=== PATIENT | female | born 1950 | race Caucasian/White ===

== ENCOUNTER → 2020-01-30 | Outpatient (CLI) | payer OTHER ==
[~2020-01-30] MED LIST: COZAAR 50 MG TA50 M2 PO; FERREX 150 FORT1 CAP PO; LEVAQUIN 500 M500 M2 PO; PROTONIX40 M1 PO; [UNRECOGNIZED DRUG - MIXTURE]
== END ==
LOC: RAD 15:22
PROVIDERS: ATTEND Family Medicine
DX: J90 Pleural effusion, not elsewhere classified (principal); I51.7 Cardiomegaly

== ENCOUNTER → 2020-02-10 | Outpatient (CLI) | payer OTHER | LOC: SJCVC 15:02 | PROVIDERS: ATTEND Internal Medicine Cardiovascular Disease | DX: R94.31 Abnormal electrocardiogram [ECG] [EKG] (principal); R00.0 Tachycardia, unspecified; I42.9 Cardiomyopathy, unspecified; R06.02 Shortness of breath; I10 Essential (primary) hypertension; E78.00 Pure hypercholesterolemia, unspecified; I89.0 Lymphedema, not elsewhere classified ==

== ENCOUNTER → 2020-02-10 | Outpatient (CLI) | payer OTHER ==
--- NOTE | 2020-02-10 14:56 | 2DMMODE ---
[facility] [place] [address] 2 D/M-MODE ECHOCARDIOGRAM Name: KENYA BEST [facility] [id number] Admission: 02/10/20 Attend Phys: David Hyatt MD Discharge: Date of : 48 Report #: [id number] THIS REPORT FOR: cc: David Hyatt MD, Neal A. MD MancusFlorentin flynn MD [facility] ~ APPROVED REPORT Study performed: 02/10/2020 14:08:39 EXAM: Comprehensive 2D, Doppler, and color-flow Echocardiogram Patient Location: Out-Patient Room #: Echo lab 2 Status: routine BSA: 2.12 HR: 114 bpm BP: 142/92 mmHg Rhythm: Tachycardia Other Information Study Quality: Adequate Indications Dyspnea Cardiomyopathy 2D Dimensions RVDd: 47.17 mm IVSd: 8.74 (7-11mm) LVOT Diam: 19.84 (18-24mm) LVDd: 58.91 mm PWd: 8.74 (7-11mm) Ascending Ao: 27.08 (22-36mm) LVDs: 50.56 (25-40mm) Aortic Root: 26.05 mm IVC: 27.00 mm Volumes Left Atrial Volume (Systole) Single Plane 4CH: 89.60 mL Single Plane 2CH: 72.81 mL LA ESV Index: 42.00 mL/m2 Aortic Valve AoV Peak Jesus.: 1.34 m/s AO Peak Gr.: 7.19 mmHg LVOT Max P.40 mmHg LVOT Max V: 0.77 m/s VERA Vmax: 1.78 cm2 [facility] [address] [address] 2 D/M-MODE ECHOCARDIOGRAM Name: KENYA BEST Room #: REG [facility]#: [id number] Admission: 02/10/20 Attend Phys: David Hyatt, Discharge: Date of : 48 Report #: [id number] Vmax: 4.95 m/s AI Powell: 2.94 m/s2 AI PHT: 487.62 ms Pulmonary Valve PV Peak Jesus.: 1.00 m/s PV Peak Gr.: 3.99 mmHg Tricuspid Valve TR Peak Jesus.: 3.04 m/s TR Peak Gr.: 36.94 mmHg PA Pressure: 52.00 mmHg Left Ventricle Left ventricle is dilated. There severe is global hypokinesis of the left ventricle. There is normal left ventricular wall thickness. Left ventricular ejection fraction is severely decreased. LVEF is 30%. Grade IV - fixed restrictive diastolic dysfunction. Right Ventricle Right ventricle is dilated. Right ventricle is hypokinetic. Atria Left atrium is dilated. Right atrium is dilated. Aortic Valve The aortic valve is normal in structure. Mild to moderate aortic regurgitation. There is no aortic valvular stenosis. Mitral Valve The mitral valve is normal in structure. Moderate mitral regurgitation. No evidence of mitral valve stenosis. Tricuspid Valve The tricuspid valve is normal in structure. There is moderate tricuspid regurgitation. Estimated PAP 52 mmHg. There is moderate pulmonary hypertension. Pulmonic Valve The pulmonary valve is normal in structure. Trace to mild pulmonic regurgitation. Great Vessels The aortic root is normal in size. The inferior vena cava is dilated with no inspiratory collapse. [facility] [place] [address] [place] [address] 2 D/M-MODE ECHOCARDIOGRAM Name: TESSAKENYA WILKINS Room #: [facility]#: [id number] Admission: 02/10/20 Attend Phys: David Hyatt, Discharge: Date of : 48 Report #: [id number] Pericardium There is no pericardial effusion. <Conclusion> Left ventricle is dilated. LVEF is 30%. Grade IV - fixed restrictive diastolic dysfunction. There severe is global hypokinesis of the left ventricle. Right ventricle is dilated. Right ventricle is hypokinetic. Left atrium is dilated. Right atrium is dilated. Mild to moderate aortic regurgitation. Moderate mitral regurgitation. There is moderate tricuspid regurgitation. Estimated PAP 52 mmHg. There is moderate pulmonary hypertension. The aortic root is normal in size. There is no pericardial effusion. <ELECTRONICALLY SIGNED> By: Florentin Eaton MD, [facility] 02/10/20 1456 1456 Florentin Eaton MD, FACC /INF
== END ==
LOC: CV 13:57
PROVIDERS: ATTEND Family Medicine
DX: I08.8 Other rheumatic multiple valve diseases (principal); I27.20 Pulmonary hypertension, unspecified; R06.00 Dyspnea, unspecified

== ENCOUNTER → 2020-02-13 | Outpatient (CLI) | payer OTHER | LOC: HYPER 13:47 | PROVIDERS: ATTEND Emergency Medicine | DX: S90.822A Blister (nonthermal), left foot, initial encounter (principal); L98.8 Other specified disorders of the skin and subcutaneous tissue; I89.0 Lymphedema, not elsewhere classified; L13.8 Other specified bullous disorders; G90.09 Other idiopathic peripheral autonomic neuropathy; R60.0 Localized edema; I25.10 Atherosclerotic heart disease of native coronary artery without angina pectoris; Z87.891 Personal history of nicotine dependence; X58.XXXA Exposure to other specified factors, initial encounter; Y93.89 Activity, other specified; Y92.89 Other specified places as the place of occurrence of the external cause; Y99.8 Other external cause status ==

== ENCOUNTER → 2020-02-20 | Outpatient (CLI) | payer OTHER | LOC: HYPER 13:50 | PROVIDERS: ATTEND Emergency Medicine | DX: L97.521 Non-pressure chronic ulcer of other part of left foot limited to breakdown of skin (principal); S90.822D Blister (nonthermal), left foot, subsequent encounter; I89.0 Lymphedema, not elsewhere classified; G90.09 Other idiopathic peripheral autonomic neuropathy; R60.0 Localized edema; L13.8 Other specified bullous disorders; R23.4 Changes in skin texture; I25.10 Atherosclerotic heart disease of native coronary artery without angina pectoris; Z87.891 Personal history of nicotine dependence; X58.XXXD Exposure to other specified factors, subsequent encounter ==

== ENCOUNTER → 2020-02-24 | Outpatient (CLI) | payer OTHER ==
[~2020-02-24] MED LIST changes: +EDARBI40 MG PO; +FUROSEMIDE 40 M40 MG PO; +POTASSIUM20 PO; +TOPROL XL25 MG PO; +UNICOMPLEX M TA1 TA1 PO
== END ==
LOC: SJCVC 13:50
PROVIDERS: ATTEND Internal Medicine Cardiovascular Disease
DX: R94.31 Abnormal electrocardiogram [ECG] [EKG] (principal); I11.0 Hypertensive heart disease with heart failure; I50.23 Acute on chronic systolic (congestive) heart failure; I42.9 Cardiomyopathy, unspecified; I89.0 Lymphedema, not elsewhere classified; E78.00 Pure hypercholesterolemia, unspecified; Z79.899 Other long term (current) drug therapy

== ENCOUNTER → 2020-03-05 | Outpatient (CLI) | payer OTHER ==
[~2020-03-05] VITALS: Ht 160 cm; Wt 106.1 kg
--- NOTE | ~2020-03-05 | EKG ---
[facility] [place] [address] ELECTROCARDIOGRAM REPORT Name: TESSAMauroAYAHKENYA Shukla Room #: REG [facility]#: [id number] Admission: 03/05/20 Attend Phys: Florentin Eaton MD, Discharge: Date of : 48 Report #: [id number] THIS REPORT FOR: cc: David Hyatt MD, Neal A. MD Epiphany, Epiphany MD ~ THIS REPORT FOR: //name// [facility] Test Date: 2020-03-05 Test Time: 08:21:49 Pat Name: KENYA BEST Department: Room: Gender: F University Relations Recruiter: YOSELIN : 1950 Requested By: Florentin Eaton Order Number: [id number] MD: Measurements Intervals [place] Rate: 76 P: 58 RI: 152 QRS: 16 QRSD: 76 T: 37 QT: 390 QTc: 439 Interpretive Statements Sinus rhythm Baseline wander in lead(s) I,III,aVL,V3 No previous ECG available for comparison [email or web address] By: 0821 0 Epiphany Epiphany, /EPI
[2020-03-05 08:33] VITALS: BP 111/60
--- NOTE | 2020-03-05 16:29 | CATHLAB ---
[facility] [place] [address] INVASIVE PROCEDURE REPORT Name: KENYA BEST Vazquez Room #: REG CLARISA VillatoroAlfaRichmondAlfa#: [id number] Admission: 03/05/20 Attend Phys: Florentin Eaton MD, Discharge: Date of : 48 Report #: [id number] THIS REPORT FOR: cc: David Hyatt MD, Neal A. MD Mancuso, Gerald M. MD [facility] ~ APPROVED REPORT Study performed: 03/05/2020 11:55:26 Patient Details Patient Status: Out-Patient Room #: The patient is a 69 year-old female Event Personnel Florentin Eaton Development Educator, Yudith Chaney RN RN, Zaynab Pritchard RTR, Ulises Monroy Sherra RTR Monitor Procedures Performed Art Access - R femoral artery* Gregory Access - R femoral vein Right and Left Heart Cath w/or w/o Coronarie [id number] [facility] Aortogram Abdominal Peripheral Angio [id number] Hemostasis w/ Mynx [id number] sedation Indication Chest pain Procedure Narrative The Right Groin^ was infiltrated with 1% Lidocaine subcutaneous anesthesia. A Right Heart Catheterization was performed with a 7 Fr. Saline-Chelo catheter and pressure were recorded. Cardiac outputs were obtained by the Thermal Dilution method. A PINNACLE 6FR Sheath #[id number] sheath was inserted into the right femoral artery. Coronary angiography was performed using coronary diagnostic catheters. The right coronary system was accessed and visualized with a JR4 catheter. The left coronary system was accessed and visualized with a JL4 catheter. The left ventricle was accessed and visualized with a PIGTAIL catheter. Left ventriculogram was performed in 30 degree projection. An aortogram of the abdominal aorta was performed. Pre-demployment femoral angiogram was performed . Closure device was deployed with a 6 Fr MYNX CONTROL 6F/7F L#[id number]. The patient tolerated the procedure well and there were no complications associated with the procedure. There was no hematoma. SEDATION [facility] [address] [place] [address] INVASIVE PROCEDURE REPORT Name: KENYA BEST Room #: [facility]#: [id number] Admission: 03/05/20 Attend Phys: Florentin Eaton, Discharge: Date of : 48 Report #: [id number] AMOUNTS, CONTRAST TOTALS,AND FLOURO TIME ARE ALL FROM A COMBO CASE WITH DR PAZ Intraoperative Conscious Sedation Sedation start time: 1250 Case end Time: 1307 Fentanyl 100 mcg Versed 2 mg Fluoro Time: 14.90 minutes Dose: DAP 19552.00 cGycm2 2869 mGy Contrast Type and Amount: Visipaque 100 ml Hemodynamics The right atrial mean pressure is 7 mmHg. The right ventricular pressure is 45/-1 mmHg. The pulmonary artery pressure is 48/19 mmHg with a mean of 29 mmHg. The mean pulmonary capillary wedge pressure is 30 mmHg. The aortic pressure is 130/64 mmHg with a mean of 91 mmHg. The left ventricular pressure is 144/6 mmHg with a mean of mmHg. The left ventricular end diastolic pressure is 14 mmHg. The cardiac output using thermo method is 3.65 L/min. The cardiac index using thermo method is 2.09 L/min/m2. PCI Technique Lesion 2 Percutaneous Coronary Intervention was performed on the Left Renal. Conclusion 1. Right heart catheterization with cardiac output by thermodilution. See above hemodynamics. #2 normal left jugular size with mild global hypokinesis slightly worse inferior EF 40 to 45%. #3 ectatic abdominal aorta with moderate calcification distal stenosis with bilateral renal artery stenosis the left renal artery is subtotaled see Dr. Paz's dictation for intervention. #4 left main mild disease giving rise to LAD and circumflex. #5 proximal LAD is an eccentric 50% lesion giving rise to a more preserved LAD which extends to the apex. Mild diagonal disease. #6 circumflex OM nondominant with mild disease #7 large dominant mildly ectatic right coronary artery Recommendations and plan: Continue aggressive risk factor [facility] [address] [place] [address] INVASIVE PROCEDURE REPORT Name: KENYA BEST Room #: REG Melissa#: [id number] Admission: 03/05/20 Attend Phys: Florentin Eaton, Discharge: Date of : 48 Report #: [id number] modification fluid restriction diuresis. Renal artery stenosis to be addressed per Dr. Paz suspect intervention with TMR TEACHER stent. <ELECTRONICALLY SIGNED> By: Florentin Eaton MD, FACC 03/05/20 1629 162 28 Florentin Eaton MD, FACC /INF
== END | disposition home or self-care (01) ==
LOC: CATH 07:42
PROVIDERS: ATTEND Internal Medicine Cardiovascular Disease
DX: R07.9 Chest pain, unspecified (principal); I25.10 Atherosclerotic heart disease of native coronary artery without angina pectoris; I70.0 Atherosclerosis of aorta; I77.811 Abdominal aortic ectasia; I70.1 Atherosclerosis of renal artery; I15.0 Renovascular hypertension; I73.9 Peripheral vascular disease, unspecified; I11.0 Hypertensive heart disease with heart failure; I50.9 Heart failure, unspecified; I42.9 Cardiomyopathy, unspecified; Z98.890 Other specified postprocedural states; Z79.899 Other long term (current) drug therapy; Z98.51 Tubal ligation status; Z96.651 Presence of right artificial knee joint; Z86.73 Personal history of transient ischemic attack (TIA), and cerebral infarction without residual deficits

== ENCOUNTER → 2020-06-18 | Outpatient (CLI) | payer OTHER | LOC: SJCVCIMAG 09:02 | PROVIDERS: ATTEND Internal Medicine Cardiovascular Disease | DX: I42.9 Cardiomyopathy, unspecified (principal); I70.1 Atherosclerosis of renal artery; I11.0 Hypertensive heart disease with heart failure; I50.23 Acute on chronic systolic (congestive) heart failure; M19.90 Unspecified osteoarthritis, unspecified site; Z95.828 Presence of other vascular implants and grafts; Z79.899 Other long term (current) drug therapy ==

== ENCOUNTER → 2020-09-25 | Outpatient (CLI) | payer OTHER | LOC: SJCVCIMAG 08:30 | PROVIDERS: ATTEND Nuclear Medicine Nuclear Cardiology | DX: R94.31 Abnormal electrocardiogram [ECG] [EKG] (principal); I08.2 Rheumatic disorders of both aortic and tricuspid valves; I70.1 Atherosclerosis of renal artery; I10 Essential (primary) hypertension; I25.10 Atherosclerotic heart disease of native coronary artery without angina pectoris; I27.20 Pulmonary hypertension, unspecified; E78.00 Pure hypercholesterolemia, unspecified; R06.00 Dyspnea, unspecified; I42.9 Cardiomyopathy, unspecified; Z87.891 Personal history of nicotine dependence; Z79.899 Other long term (current) drug therapy; Z95.5 Presence of coronary angioplasty implant and graft ==

== ENCOUNTER → 2021-02-27 | Outpatient (CLI) | payer OTHER | LOC: SJCVC 10:04 | PROVIDERS: ATTEND Internal Medicine Cardiovascular Disease | DX: R00.0 Tachycardia, unspecified (principal); R06.00 Dyspnea, unspecified; I25.10 Atherosclerotic heart disease of native coronary artery without angina pectoris; I42.9 Cardiomyopathy, unspecified; I10 Essential (primary) hypertension; E78.00 Pure hypercholesterolemia, unspecified; I70.1 Atherosclerosis of renal artery; Z95.828 Presence of other vascular implants and grafts; Z98.890 Other specified postprocedural states; Z79.84 Long term (current) use of oral hypoglycemic drugs; Z79.899 Other long term (current) drug therapy; Z87.891 Personal history of nicotine dependence; Z82.49 Family history of ischemic heart disease and other diseases of the circulatory system ==

== ENCOUNTER → 2021-03-01 | Outpatient (CLI) | payer OTHER | LOC: HYPER 07:27 | PROVIDERS: ATTEND Emergency Medicine Emergency Medical Services | DX: E11.622 Type 2 diabetes mellitus with other skin ulcer (principal); L89.313 Pressure ulcer of right buttock, stage 3; L98.412 Non-pressure chronic ulcer of buttock with fat layer exposed; E11.43 Type 2 diabetes mellitus with diabetic autonomic (poly)neuropathy; I89.0 Lymphedema, not elsewhere classified; M62.81 Muscle weakness (generalized); I25.10 Atherosclerotic heart disease of native coronary artery without angina pectoris; I10 Essential (primary) hypertension; M19.90 Unspecified osteoarthritis, unspecified site; L13.8 Other specified bullous disorders; R60.0 Localized edema; Z87.891 Personal history of nicotine dependence; Z79.84 Long term (current) use of oral hypoglycemic drugs; Z79.899 Other long term (current) drug therapy ==

== ENCOUNTER → 2021-03-15 | Outpatient (CLI) | payer OTHER | LOC: HYPER 07:52 | PROVIDERS: ATTEND Emergency Medicine | DX: E11.622 Type 2 diabetes mellitus with other skin ulcer (principal); L89.313 Pressure ulcer of right buttock, stage 3; L89.320 Pressure ulcer of left buttock, unstageable; L98.412 Non-pressure chronic ulcer of buttock with fat layer exposed; E11.43 Type 2 diabetes mellitus with diabetic autonomic (poly)neuropathy; L13.8 Other specified bullous disorders; I89.0 Lymphedema, not elsewhere classified; R60.0 Localized edema; E66.01 Morbid (severe) obesity due to excess calories; I25.10 Atherosclerotic heart disease of native coronary artery without angina pectoris; I10 Essential (primary) hypertension; I42.9 Cardiomyopathy, unspecified; M19.90 Unspecified osteoarthritis, unspecified site; M62.81 Muscle weakness (generalized); Z87.891 Personal history of nicotine dependence; Z79.84 Long term (current) use of oral hypoglycemic drugs; Z68.39 Body mass index [BMI] 39.0-39.9, adult ==

== ENCOUNTER → 2021-03-29 | Outpatient (CLI) | payer OTHER | LOC: HYPER 07:41 | PROVIDERS: ATTEND Emergency Medicine Emergency Medical Services | DX: E11.622 Type 2 diabetes mellitus with other skin ulcer (principal); L89.313 Pressure ulcer of right buttock, stage 3; L89.320 Pressure ulcer of left buttock, unstageable; L98.412 Non-pressure chronic ulcer of buttock with fat layer exposed; M62.81 Muscle weakness (generalized); G90.09 Other idiopathic peripheral autonomic neuropathy; L13.8 Other specified bullous disorders; R60.0 Localized edema; I89.0 Lymphedema, not elsewhere classified; I25.10 Atherosclerotic heart disease of native coronary artery without angina pectoris; I10 Essential (primary) hypertension; Z87.891 Personal history of nicotine dependence; Z79.84 Long term (current) use of oral hypoglycemic drugs; Z79.899 Other long term (current) drug therapy ==

== ENCOUNTER → 2021-04-19 | Outpatient (CLI) | payer OTHER | LOC: HYPER 07:35 | PROVIDERS: ATTEND Emergency Medicine Emergency Medical Services | DX: E11.622 Type 2 diabetes mellitus with other skin ulcer (principal); L89.320 Pressure ulcer of left buttock, unstageable; L98.411 Non-pressure chronic ulcer of buttock limited to breakdown of skin; M62.81 Muscle weakness (generalized); M19.90 Unspecified osteoarthritis, unspecified site; E11.43 Type 2 diabetes mellitus with diabetic autonomic (poly)neuropathy; L13.8 Other specified bullous disorders; R60.0 Localized edema; I89.0 Lymphedema, not elsewhere classified; I25.10 Atherosclerotic heart disease of native coronary artery without angina pectoris; I10 Essential (primary) hypertension; Z87.891 Personal history of nicotine dependence; Z79.84 Long term (current) use of oral hypoglycemic drugs; Z79.899 Other long term (current) drug therapy ==

== ENCOUNTER → 2021-04-30 | Outpatient (CLI) | payer OTHER | LOC: SJCVCIMAG 08:06 | PROVIDERS: ATTEND Internal Medicine Cardiovascular Disease | DX: R94.31 Abnormal electrocardiogram [ECG] [EKG] (principal); I25.10 Atherosclerotic heart disease of native coronary artery without angina pectoris; I65.23 Occlusion and stenosis of bilateral carotid arteries; I70.1 Atherosclerosis of renal artery; I11.0 Hypertensive heart disease with heart failure; I50.23 Acute on chronic systolic (congestive) heart failure; I42.9 Cardiomyopathy, unspecified; E78.00 Pure hypercholesterolemia, unspecified; E11.9 Type 2 diabetes mellitus without complications; Z87.891 Personal history of nicotine dependence; Z79.899 Other long term (current) drug therapy ==

== ENCOUNTER → 2021-05-06 | Outpatient (CLI) | payer OTHER | LOC: SJCVCIMAG 10:49 | PROVIDERS: ATTEND Internal Medicine Cardiovascular Disease | DX: I42.9 Cardiomyopathy, unspecified (principal); I25.10 Atherosclerotic heart disease of native coronary artery without angina pectoris ==

== ENCOUNTER → 2021-05-21 | Outpatient (CLI) | payer OTHER ==
[~2021-05-21] MED LIST changes: +CLOPIDOGREL75 MG PO; +DEMADEX20 MG PO; +KLOR-CON M2020 MEQ PO; +METAMUCIL POWD174 GM PO; +METFORMIN HCL500 M1 PO; +ROSUVASTATIN CA20 MG PO; +VITAMIN B COMP1 EACH PO
[2021-05-21 11:36] LABS: HEMATOCRIT 42.3 % (37.0-47.0); HEMOGLOBIN 14.1 gm/dL (12.0-15.0); MCH 29.6 pg (26.0-34.0); MCHC 33.2 g/dL (28.0-37.0); RBC 4.76 mil/uL (4.20-5.00); RDW 16.6 % (10.5-14.5); WBC 9.5 thou/uL (4.0-11.0)
[2021-05-21 11:45] LABS: URINE BILIRUBIN NEGATIVE (Negative); URINE BLOOD NEGATIVE (Negative); URINE CLARITY CLEAR; URINE COLOR YELLOW; URINE GLUCOSE-RANDOM* NEGATIVE (Negative); URINE KETONES NEGATIVE (Negative); URINE NITRITE-REFLEX NEGATIVE (Negative); URINE PROTEIN (DIPSTICK) NEGATIVE (Negative); URINE SPECIFIC GRAVITY 1.025 (1.005-1.035); URINE UROBILINOGEN 0.2 E.U./dl (0.2-1.0)
[2021-05-21 11:45] LABS: ALBUMIN 3.9 g/dL (3.4-5.0); CALCIUM 9.7 mg/dL (8.5-10.1); CREATININE 1.3 mg/dL (0.6-1.0); POTASSIUM 3.5 mmol/L (3.5-5.1)
[2021-05-21 11:48] LABS: INR 1.03; PROTIME 11.2 Seconds (10.5-12.1)
[2021-05-21 11:56] LABS: URINE LEUKOCYTES-REFLEX 2+ (Negative)
[2021-05-21 13:03] LABS: BACTERIA-REFLEX 1-9 Few /HPF (None Seen); SQUAMOUS 0-3 Few /LPF (0-3); URINE RBC None Seen /HPF (NONE SEEN); URINE WBC-REFLEX 6-15 Few /HPF (0-5)
[2021-05-21 13:04] LABS: CASTS None Seen /LPF (None Seen); CRYSTALS None Seen /LPF (None Seen)
== END ==
LOC: PAC 10:34
PROVIDERS: ATTEND Orthopaedic Surgery
DX: Z01.812 Encounter for preprocedural laboratory examination (principal); M16.12 Unilateral primary osteoarthritis, left hip

== ENCOUNTER → 2021-05-24 | Outpatient (CLI) | payer OTHER | LOC: LAB 07:52 | PROVIDERS: ATTEND Student in an Organized Health Care Education/Training Program | DX: Z01.812 Encounter for preprocedural laboratory examination (principal); Z20.822 Contact with and (suspected) exposure to COVID-19 ==

== ENCOUNTER 2021-05-27 06:04 | Observation (INO) | payer OTHER ==
[~2021-05-27] VITALS: Ht 160 cm; Wt 92.5 kg
[2021-05-27 06:50] VITALS: BP 110/70
--- NOTE | 2021-05-27 12:00 | NUR ---
Pt arrived to room 442 from surgery. pt is A & O x4. Pt vs stable. pt has PT/OT consult. pt is able to make needs known. pt denies pain/n/v noted.
[2021-05-27 12:15] VITALS: BP 127/61
[2021-05-27 16:08] VITALS: BP 113/61
--- NOTE | 2021-05-27 16:22 | NUR ---
PT ADMITTED RELATED TO LT THR. CM REVIEWED CHART AND SPOKE WITH CARE TEAM. CM MET WITH PT AT BEDSIDE THIS DAY. PT APPEARED TO BE A&O X 4. CM ROLE INTRODUCED. PT INDICATED THAT SHE RESIDES IN A HOUSE WITH HER SPOSE WITH 6 STEPS TO ENTER AND NO STEPS INISDE. PT INDICATED SHE HAD USED A CANE OCCASIONALLY TO ASSIST WITH MOBILITY INSTRUCTIONAL FACILITATOR AND THAT SHE HAS 3 WALKERS SHE CAN USE UPON DC. PT INDICATED SHE IS SET UP WITH OP PT AND OT AT A PLACE IN [place] SHE CAN'T RECALL THE NAME BUT SHE KNOWS WHERE IT IS AND WHEN SHE NEEDS TO BE THERE. PT INIDCATED SHE PLANS TO RETUN HOME TOMORROW. CM FOLLOWING SHOULD ANY DC NEEDS ARISE.
[2021-05-27 19:39] VITALS: BP 99/55
--- NOTE | 2021-05-28 02:53 | NUR ---
ASSESSED AT START OF SHIFT PT RESTING IN BED. UP WITH ASSISTX1 TO TY BATHROOM. IV INTACT AND FLUIDS INFUSING. EVENING MEDS GIVEN AND PT ALBA IT WELL. LEFT HIP MANJIT DRESSING INTACT. ICE PACK IN PLACE FOR COLD THERAPY. WILL CONT WITH POC TILL EOS.
[2021-05-28 04:54] VITALS: BP 134/88
[2021-05-28 07:34] VITALS: BP 124/64
[2021-05-28 13:37] VITALS: BP 124/64
--- NOTE | 2021-05-28 15:27 | NUR ---
CARE TEAM INDICATED THAT PT IS MEDICALLY STABLE TO DC HOME THIS DAY. PT IS SET UP WITH OP PT AND OT IN [place] STARTING TOMORROW. PT HAS ALL NEEDED DME. NO OTHER CM INTERVENTION INDICATED. CASE CLOSED.
--- NOTE | 2021-05-28 16:04 | NUR ---
pt received discharge orders to home. pt vs stable. pt is SBA with ADLs and cares. pt discharge instructions reviewed with pt and pt verbalized understanding and signed instructions. pt wheeled to front enterence in wheelchair by staff with personal belongings and left hospital without incident in private vehicle.
--- NOTE | 2021-05-29 13:42 | O ---
[facility] [place] [address] [place] [address] OPERATIVE REPORT Name: KENYA BEST Room #: 442-P [facility] Fabien Torres#: [id number] Admission: 05/27/21 Attend Phys: Alexander Grant MD Discharge: 05/28/21 Date of : 48 Report #: [id number] THIS REPORT FOR: cc: David Hyatt MD, Neal A. MD Abraham,Alexander Ramirez MD ~ DATE OF SERVICE: 05/27/2021 PREOPERATIVE DIAGNOSIS: Severe left hip osteoarthritis. POSTOPERATIVE DIAGNOSIS: Severe left hip osteoarthritis. PROCEDURE: Left total hip arthroplasty. SURGEON: Alexander Grant MD PEDIATRIC PSYCHOLOGIST: Vale Andres PA-C INDICATION FOR PEDIATRIC PSYCHOLOGIST: Throughout the case, extensive retraction, manipulation of the hip including dislocation and reduction was required. This was afforded to me by my financial assistant. ANESTHESIA: LMA. IMPLANTS: A [employer] size 11 standard offset cemented Synergy press-fit stem, a size 52 R3 acetabular cup and a size 36+0 cobalt chrome head. ESTIMATED BLOOD LOSS: 150 mL. COMPLICATIONS: None. SPECIMENS: None. CONDITION UPON LEAVING THE OPERATING ROOM: Stable. INDICATIONS FOR PROCEDURE: The patient is a 70-year-old female with severe left hip hypertrophic osteoarthritis. She had failed conservative measures for this and after discussion with her, she elected for left total hip arthroplasty. DESCRIPTION OF PROCEDURE: Risks, benefits, alternatives, complications were discussed in detail with the patient including but not limited to risk of anesthesia, risk of damage to nerves, arteries, blood vessels, risk for infection, bleeding, risk for continued hip pain, leg length discrepancy, instability and need for reoperation. Informed consent was obtained from the patient. Left hip was appropriately marked in the preoperative holding area. IV Ancef was given for preoperative antibiotics. She was brought to the [facility] [address] [place] [address] OPERATIVE REPORT Name: KENYA BEST Room #: 442-P CASSANDRA Torres#: [id number] Admission: 05/27/21 Attend Phys: Alexander Grant MD Discharge: 05/28/21 Date of : 48 Report #: [id number] operating room and placed in supine position on the operating room table. LMA anesthesia was induced without complications. She was placed in the right lateral decubitus position with the left hip uppermost. Left hip and lower extremity were prepped and draped in normal sterile fashion. Timeout was performed properly identifying the patient, procedure as well as the instrumentation and implants. All in the operating room in agreement. Standard posterior approach to the hip was made with 10 blade through the skin. Dissection was taken down to the fascia with Bovie cautery and Fong elevator was used to clean out the fascia. Fresh 10 blade was used to make a fascial incision. This was taken proximally and distally with curved Hernandez scissor. Charnley retractor was placed. Trochanteric bursa was taken down with Bovie cautery. Piriformis tendon was identified, tagged and taken down with Bovie. Short external rotators were also taken down with Bovie cautery. Capsulotomy was made and capsule ends were tagged for later repair. Hip was dislocated. There was extensive osteoarthritic change of the femoral head. Femoral neck cut was made 1 cm proximal to the lesser trochanter based on preoperative templating and the femoral head was removed. Deep acetabular retractors were placed. Labrum was removed sharply. Pulvinar was removed with Bovie cautery. Acetabulum was then sequentially reamed up to a size 52, at which point there was excellent bleeding cancellous bone. A size 51 trial cup was placed, found to have a good fit. A final size 52 R3 acetabular cup was placed and seated. One acetabular screw was placed for backup fixation and a polyethylene liner for a 36 head was placed. Attention was turned to the femur. This was reamed and broached up to a size 11, at which point the size 11 broach was stable, was trialed with a standard offset neck and a 36+0 head. Hip was reduced, taken through range of motion, found to be stable, found to have equal leg lengths. Hip was dislocated. A final size 11 standard offset Synergy stem was cemented in place using standard cementation techniques. After the cement cured, this was trialed with a 36+0 head. Hip was reduced, taken through range of motion, found to be stable, found to have equal leg lengths. Hip was dislocated one last time and a final size 36+0 cobalt chrome head was placed. Hip was reduced, taken through range of motion, found to be stable. The hip was thoroughly irrigated with normal saline. Periarticular injection consisting of morphine, ropivacaine, epinephrine, Toradol was placed around the hip joint capsule. A gram of vancomycin was placed deep in the joint. The capsule and piriformis were repaired with 0 FiberWire. Fascia was closed with 0 Vicryl. Skin was closed with 2-0 Vicryl, skin staple and a MANJIT dressing was applied. The patient tolerated this procedure well and went to recovery room under care of anesthesia postoperatively. <ELECTRONICALLY SIGNED> By: Alexander Grant MD 05/29/21 1342 0901 [id number] Alexander Grant MD /nt
== END 2021-05-28 16:15 | disposition home or self-care (01) ==
LOC: OR → 4S 06:04 → OR 06:04 → 4S 11:02 → OR 11:03 → 4S 05-28 16:15
PROVIDERS: ADMIT Orthopaedic Surgery; ATTEND Orthopaedic Surgery
DX: M16.12 Unilateral primary osteoarthritis, left hip (principal); E11.9 Type 2 diabetes mellitus without complications; I10 Essential (primary) hypertension; I25.10 Atherosclerotic heart disease of native coronary artery without angina pectoris; I70.1 Atherosclerosis of renal artery; Z79.84 Long term (current) use of oral hypoglycemic drugs; Z79.899 Other long term (current) drug therapy
CPT/HCPCS: 10102; 50010; 50101; 50382; 50414; 51057; 51130; 51225; 51226; 51412; 53000; 53078; 53367; 56460; 56524; 56528; 56530; 57095; 57103; 62110; 62900; 70005